=== PATIENT | male | born 1965 | race African-American/Black ===

== ENCOUNTER 2025-06-06 12:41 | Inpatient (IN) | payer MEDICAID ==
[~2025-06-06] VITALS: Ht 175.3 cm; Wt 73.0 kg
[2025-06-06 12:47] VITALS: O2SAT 100
[2025-06-06] MEDS: CEFTRIAXONE 2GM/50ML 50 ML IV ONE (14:10)
[2025-06-06] MEDS: SODIUM CHLORIDE 0.9% 1,000 ML IV ONE (14:10)
[2025-06-06 14:26] LABS: HEMATOCRIT. 26.0 % (42.0-52.0); HEMOGLOBIN. 7.2 g/dL (14.0-18.0); MEAN PLATELET VOLUME 10.3 fl (7.4-10.4); PLATELET 109 x1000/uL (130-400); RED BLOOD CELL COUNT 3.61 mill/uL (4.7-6.1); RED CELL DISTRIBUTION WIDTH 19.7 % (11.6-14.6)
[2025-06-06 14:31] LABS: PROTEIN TOTAL 8.4 g/dL (6.0-8.3)
[2025-06-06 14:32] LABS: CREATININE 1.7 mg/dL (0.6-1.3); UREA NITROGEN BLOOD 25 mg/dL (9-23)
[2025-06-06 14:33] LABS: ETHANOL BLOOD < 10 mg/dL (<10)
[2025-06-06 14:34] LABS: ASPARTATE AMINOTRANSFERASE 387 IU/L (<34); BILIRUBIN DIRECT 0.7 mg/dL (<=3.0)
[2025-06-06 14:35] LABS: BILIRUBIN TOTAL 1.9 mg/dL (0.1-1.0)
[2025-06-06 14:42] LABS: TROPONIN I HIGH SENSITIVITY 76 ng/L (3.0-53)
[2025-06-06 14:58] LABS: LYMPHOCYTES % MANUAL 7.0 % (20.0-50.0); MONOCYTES % MANUAL 1.0 % (2.0-8.0); NEUTROPHILS % MANUAL 92.0 % (45.0-75.0); PLATELET ESTIMATE DECREASED
[2025-06-06] MEDS: DEXT 5%/0.45% NACL 1000ML 1,000 ML IV ONE (15:23)
[2025-06-06] MEDS: DEXTROSE 50% WATER 50ML SYRINGE IV ONE (15:23)
[2025-06-06 16:00] VITALS: BP 121/78; PULSE 115; RESP 19; TEMP 36.9; O2SAT 100
[2025-06-06] MEDS: INSULIN LISPRO 100 UNITS/ML SUBCUT SCH (17:15)
[2025-06-06 18:07] VITALS: BP 121/78; PULSE 115; RESP 19; TEMP 36.8628
[2025-06-06] MEDS ORDERED: HYDRALAZINE 20MG/ML VIAL IV PRN (18:30)
[2025-06-06] MEDS ORDERED: ONDANSETRON HCL 4MG/2ML INJ IV PRN (18:30)
[2025-06-06] MEDS ORDERED: IPRATROPIUM/ALBUTEROL 0.5-3(2.5)MG/3ML NEB HHN PRN (18:30)
[2025-06-06] MEDS ORDERED: DEXTROSE 50% WATER 50ML SYRINGE IV PRN (18:30)
[2025-06-06 20:00] VITALS: BP 122/67; PULSE 100; RESP 17; TEMP 36.6; O2SAT 100
[2025-06-06] MEDS ORDERED: INSULIN LISPRO 100 UNITS/ML SUBCUT SCH (21:00)
[2025-06-06] MEDS: BLOOD SUGAR DIAGNOSTIC STRIP TEST SCH (21:00)
[2025-06-06] MEDS ORDERED: BLOOD SUGAR DIAGNOSTIC STRIP TEST SCH (21:00)
[2025-06-07] VITALS: BP 102/50; PULSE 101; RESP 18; TEMP 37.3; O2SAT 97
[2025-06-07 04:00] VITALS: BP 97/52; PULSE 84; RESP 18; TEMP 37.1; O2SAT 100
[2025-06-07] MEDS: PANTOPRAZOLE SODIUM 40 MG/VIAL IV SCH (09:00)
[2025-06-07] MEDS ORDERED: PANTOPRAZOLE 40MG DR TABLET PO SCH (09:00)
[2025-06-07] MEDS: THIAMINE HCL 100MG TABLET PO SCH (09:00)
[2025-06-07 12:00] VITALS: PULSE 116
[2025-06-07 16:00] VITALS: PULSE 110
[2025-06-08 01:30] VITALS: BP 141/86; PULSE 82; RESP 18; TEMP 36.8; O2SAT 98
[2025-06-08 04:00] VITALS: BP 119/79; PULSE 84; RESP 18; TEMP 37.2; O2SAT 100
[2025-06-08 08:00] VITALS: BP 142/88; PULSE 96; RESP 15; TEMP 36.5; O2SAT 100
[2025-06-08] MEDS: ACETAMINOPHEN 325MG TABLET PO PRN (09:09)
[2025-06-08 12:00] VITALS: BP 114/69; PULSE 107; RESP 15; TEMP 36.3; O2SAT 99
[2025-06-08] MEDS ORDERED: LORAZEPAM 1MG TABLET PO PRN (15:45)
[2025-06-08 16:00] VITALS: BP 118/70; PULSE 98; RESP 16; TEMP 36.2; O2SAT 100
[2025-06-08 20:00] VITALS: BP 105/70; PULSE 90; RESP 17; TEMP 36.6; O2SAT 98
[2025-06-09] VITALS: BP 100/66; PULSE 74; RESP 17; TEMP 36.7; O2SAT 99
[2025-06-09 04:00] VITALS: BP 138/73; PULSE 95; RESP 17; TEMP 36.4; O2SAT 99
[2025-06-09 07:07] LABS: HEMATOCRIT. 26.6 % (42.0-52.0); HEMOGLOBIN. 7.8 g/dL (14.0-18.0); MEAN PLATELET VOLUME 8.7 fl (7.4-10.4); PLATELET 132 x1000/uL (130-400); RED BLOOD CELL COUNT 3.84 mill/uL (4.7-6.1); RED CELL DISTRIBUTION WIDTH 19.8 % (11.6-14.6)
[2025-06-09 07:24] LABS: CREATININE 0.9 mg/dL (0.6-1.3); UREA NITROGEN BLOOD 14 mg/dL (9-23)
[2025-06-09 08:00] VITALS: BP 123/65; PULSE 82; RESP 15; TEMP 36.2; O2SAT 99
[2025-06-09 12:00] VITALS: BP 110/59; PULSE 83; RESP 15; TEMP 36.7; O2SAT 100
[2025-06-09] MEDS: POTASSIUM CHLORIDE 20MEQ TABLET SR PO NR (12:48)
[2025-06-09 16:00] VITALS: BP 126/70; PULSE 80; RESP 16; TEMP 36.8; O2SAT 99
[2025-06-09 17:43] LABS: BASOPHILS % MANUAL 1.0 % (0.0-2.0); EOSINOPHILS % MANUAL 2.0 % (0.0-5.0); LYMPHOCYTES % MANUAL 27.0 % (20.0-50.0); MONOCYTES % MANUAL 21.0 % (2.0-8.0); NEUTROPHILS % MANUAL 49.0 % (45.0-75.0); PLATELET ESTIMATE NORMAL
[2025-06-09 20:00] VITALS: BP 115/73; PULSE 85; RESP 17; TEMP 37.4; O2SAT 100
[2025-06-10] VITALS: BP 115/73; PULSE 74; RESP 17; TEMP 36.7; O2SAT 98
[2025-06-10 04:00] VITALS: BP 108/69; PULSE 72; RESP 17; TEMP 37.4; O2SAT 98
[2025-06-10 08:00] VITALS: BP 119/73; PULSE 85; RESP 17; TEMP 36.6; O2SAT 100
[2025-06-10] MEDS ORDERED: ENOXAPARIN 100MG/ML SYR SUBCUT SCH (08:15)
[2025-06-10] MEDS ORDERED: APIX5TAB MT (08:26)
[2025-06-10] MEDS: ENOXAPARIN 80MG/0.8ML SYR SUBCUT SCH ×2 (08:59→22:06)
[2025-06-10 12:00] VITALS: BP 107/67; PULSE 85; RESP 17; TEMP 36.7; O2SAT 100
[2025-06-10 16:00] VITALS: BP 121/76; PULSE 85; RESP 17; TEMP 36.6; O2SAT 100
[2025-06-10 20:00] VITALS: BP 114/74; PULSE 89; RESP 17; TEMP 38; O2SAT 99
[2025-06-10 21:59] LABS: INR 1.1
[2025-06-11] VITALS (10 sets, daily range): BP systolic 75–146; BP diastolic 67–91; PULSE 79–91; RESP 17–18; TEMP 36.4–38.7; O2SAT 98–100
[2025-06-11 06:49] LABS: CREATININE 0.8 mg/dL (0.6-1.3); UREA NITROGEN BLOOD 11 mg/dL (9-23)
[2025-06-11 07:04] LABS: HEMATOCRIT. 23.0 % (42.0-52.0); MEAN PLATELET VOLUME 9.0 fl (7.4-10.4); PLATELET 149 x1000/uL (130-400); RED BLOOD CELL COUNT 3.39 mill/uL (4.7-6.1); RED CELL DISTRIBUTION WIDTH 20.5 % (11.6-14.6)
[2025-06-11 07:32] LABS: HEMOGLOBIN. 6.9 g/dL (14.0-18.0)
[2025-06-11] MEDS ORDERED: ENOXAPARIN 80MG/0.8ML SYR SUBCUT SCH (09:00)
[2025-06-11 19:00] LABS: LYMPHOCYTES % MANUAL 23.0 % (20.0-50.0); MONOCYTES % MANUAL 19.0 % (2.0-8.0); NEUTROPHILS % MANUAL 58.0 % (45.0-75.0); PLATELET ESTIMATE NORMAL
[2025-06-12] VITALS: BP 114/63; PULSE 75; RESP 18; TEMP 35.1; O2SAT 97
[2025-06-12 04:00] VITALS: BP 99/56; PULSE 77; RESP 18; TEMP 35.1; O2SAT 97
[2025-06-12 08:00] VITALS: BP 108/67; PULSE 80; RESP 18; TEMP 36.6; O2SAT 97
[2025-06-12 12:00] VITALS: BP 105/65; PULSE 85; RESP 17; TEMP 36.4; O2SAT 98
[2025-06-12] MEDS ORDERED: HYDRALAZINE 10 MG in SODIUM CHLORIDE 0.9% 49.5 ML IV PRN (13:15)
[2025-06-12 16:00] VITALS: BP 127/77; PULSE 80; RESP 19; TEMP 36.9; O2SAT 99
[2025-06-12 17:17] LABS: HEMATOCRIT. 30.6 % (42.0-52.0); HEMOGLOBIN. 8.8 g/dL (14.0-18.0); MEAN PLATELET VOLUME 9.3 fl (7.4-10.4); PLATELET 207 x1000/uL (130-400); RED BLOOD CELL COUNT 4.23 mill/uL (4.7-6.1); RED CELL DISTRIBUTION WIDTH 21.9 % (11.6-14.6)
[2025-06-12 17:32] LABS: CREATININE 0.8 mg/dL (0.6-1.3); UREA NITROGEN BLOOD 9 mg/dL (9-23)
[2025-06-12 17:47] LABS: EOSINOPHILS % MANUAL 5.0 % (0.0-5.0); LYMPHOCYTES % MANUAL 17.0 % (20.0-50.0); MONOCYTES % MANUAL 10.0 % (2.0-8.0); NEUTROPHILS % MANUAL 68.0 % (45.0-75.0); PLATELET ESTIMATE NORMAL
[2025-06-12 20:00] VITALS: BP 116/71; PULSE 82; RESP 19; TEMP 36.4; O2SAT 100
[2025-06-13] VITALS: BP 114/67; PULSE 87; RESP 20; TEMP 36.3; O2SAT 100
[2025-06-13 04:00] VITALS: BP 118/72; PULSE 89; RESP 20; TEMP 36.7; O2SAT 99
[2025-06-13 06:46] LABS: HEMATOCRIT. 25.8 % (42.0-52.0); HEMOGLOBIN. 7.8 g/dL (14.0-18.0); MEAN PLATELET VOLUME 9.3 fl (7.4-10.4); PLATELET 216 x1000/uL (130-400); RED BLOOD CELL COUNT 3.70 mill/uL (4.7-6.1); RED CELL DISTRIBUTION WIDTH 22.4 % (11.6-14.6)
[2025-06-13 06:56] LABS: CREATININE 0.7 mg/dL (0.6-1.3); UREA NITROGEN BLOOD 8 mg/dL (9-23)
[2025-06-13 08:00] VITALS: BP 116/68; PULSE 72; RESP 20; TEMP 36.2; O2SAT 100
[2025-06-13 12:00] VITALS: BP 110/67; PULSE 81; RESP 20; TEMP 36.3; O2SAT 100
[2025-06-13 16:00] VITALS: BP 119/69; PULSE 77; RESP 20; TEMP 36.6; O2SAT 99
[2025-06-13 20:00] VITALS: BP 114/68; PULSE 78; RESP 17; TEMP 36.3; O2SAT 99
[2025-06-13 20:20] LABS: EOSINOPHILS % MANUAL 4.0 % (0.0-5.0); LYMPHOCYTES % MANUAL 21.0 % (20.0-50.0); MONOCYTES % MANUAL 22.0 % (2.0-8.0); NEUTROPHILS % MANUAL 53.0 % (45.0-75.0); PLATELET ESTIMATE NORMAL
[2025-06-14 04:00] VITALS: BP 119/69; PULSE 78; RESP 17; TEMP 36.3; O2SAT 99
[2025-06-14 08:00] VITALS: BP 119/73; PULSE 69; RESP 20; TEMP 36.8; O2SAT 100
[2025-06-14 08:46] LABS: HEMATOCRIT. 28.4 % (42.0-52.0); HEMOGLOBIN. 8.6 g/dL (14.0-18.0); MEAN PLATELET VOLUME 9.3 fl (7.4-10.4); PLATELET 266 x1000/uL (130-400); RED BLOOD CELL COUNT 3.99 mill/uL (4.7-6.1); RED CELL DISTRIBUTION WIDTH 22.7 % (11.6-14.6)
[2025-06-14 09:01] LABS: CREATININE 0.8 mg/dL (0.6-1.3); UREA NITROGEN BLOOD 8 mg/dL (9-23)
[2025-06-14 12:00] VITALS: BP 121/69; PULSE 71; RESP 20; TEMP 36.9; O2SAT 100
[2025-06-14] MEDS: ENOXAPARIN 80MG/0.8ML SYR SUBCUT SCH (12:00)
[2025-06-14 16:00] VITALS: BP 107/69; PULSE 81; RESP 20; TEMP 37; O2SAT 99
[2025-06-14 20:00] VITALS: BP 107/68; PULSE 76; RESP 18; TEMP 36.6; O2SAT 96
[2025-06-14 20:57] LABS: EOSINOPHILS % MANUAL 3.0 % (0.0-5.0); LYMPHOCYTES % MANUAL 22.0 % (20.0-50.0); MONOCYTES % MANUAL 17.0 % (2.0-8.0); NEUTROPHILS % MANUAL 58.0 % (45.0-75.0); PLATELET ESTIMATE NORMAL
[2025-06-15] VITALS (16 sets, daily range): BP systolic 101–130; BP diastolic 62–84; PULSE 68–87; RESP 17–22; TEMP 36.5–37.3; O2SAT 97–100
[2025-06-15] MEDS ORDERED: LIDOCAINE HCL 1% 10 MG/ML 10ML VIAL ONE (06:58)
[2025-06-15] MEDS ORDERED: IOHEXOL-300 50 ML BOTTLE IV ONE ×2 (06:58→07:08)
[2025-06-15] MEDS: CEFAZOLIN 1000MG PREMIX 50 ML IV SCH (07:30)
[2025-06-16] VITALS: BP 124/78; PULSE 75; RESP 18; TEMP 37.2; O2SAT 98
[2025-06-16 04:00] VITALS: BP 110/65; PULSE 68; RESP 16; TEMP 36.3; O2SAT 97
[2025-06-16 08:00] VITALS: BP 117/60; PULSE 70; RESP 18; TEMP 36.4; O2SAT 97
[2025-06-16 12:00] VITALS: BP 122/71; PULSE 76; RESP 16; TEMP 36.7; O2SAT 100
[2025-06-16 14:42] VITALS: BP 122/71; PULSE 76; RESP 16; TEMP 98
[2025-06-17] MEDS ORDERED: APIX5TAB MT (10:34)
== END 2025-06-16 17:00 | disposition home or self-care (01) | DRG 52 ==
LOC: ER 12:41 → 5WST 15:04 → EDBEDREQSVC 15:06 → EDBEDREQ 15:06 → EDBEDREQTM 15:06 → ENRESERV 15:18 → 5WST 19:14 → 6EST 06-12 12:34
PROVIDERS: ADMIT Internal Medicine; ATTEND Internal Medicine
PROC: 30233N1 Transfusion of Nonautologous Red Blood Cells into Peripheral Vein, Percutaneous Approach (ICD-10-PCS; principal; 2025-06-11)
PROC: 06H03DZ Insertion of Intraluminal Device into Inferior Vena Cava, Percutaneous Approach (ICD-10-PCS; 2025-06-15)
PROC: B549ZZA Ultrasonography of Inferior Vena Cava, Guidance (ICD-10-PCS; 2025-06-15)
PROC: B5191ZZ Fluoroscopy of Inferior Vena Cava using Low Osmolar Contrast (ICD-10-PCS; 2025-06-15)
DX: G93.40 Encephalopathy, unspecified (principal); I82.433 Acute embolism and thrombosis of popliteal vein, bilateral; N17.9 Acute kidney failure, unspecified; D50.9 Iron deficiency anemia, unspecified; D72.829 Elevated white blood cell count, unspecified; E80.6 Other disorders of bilirubin metabolism; E11.9 Type 2 diabetes mellitus without complications; Z79.01 Long term (current) use of anticoagulants; F10.10 Alcohol abuse, uncomplicated; I10 Essential (primary) hypertension; J45.909 Unspecified asthma, uncomplicated; R79.89 Other specified abnormal findings of blood chemistry; Y90.0 Blood alcohol level of less than 20 mg/100 ml
CPT/HCPCS: 36415; 37191; 71045; 74018; 80048; 80076; 80307; 80320; 80329; 82140; 82962; 83735; 83880; 84484; 85014; 85018; 85025; 86850; 86900; 86920; 93005; 93970; 97162; 99152; 99153; 99285; A4606; C1725; C1769; C1880; C1887; J0690; J0696; J1644; J1650; J1815; J2003; J2470; J7030; P9016; Q9967; G0480; G0500